=== PATIENT | female | born 1980 | race Caucasian/White ===

== ENCOUNTER → 2020-07-23 15:20 | Outpatient (CLI) | payer MEDICAID, SELFPAY ==
[2020-07-23 16:08] LABS: Basophils # 0.1 K/mm3 (0-0.2); Basophils % 0.9 % (0.1-2.0); Eosinophils # 1.5 K/mm3 (0.0-0.4); Eosinophils % 18.7 % (0.1-12.0); Hemoglobin 14.1 g/dL (12.2-16.2); Mean Corpuscular HGB Conc 33.5 g/dL (31.8-35.4); Mean Corpuscular Hemoglobin 30.8 pg (27.0-31.2); Mean Platelet Volume 8.1 fl (7.4-10.4); Monocytes # 0.5 K/mm3 (0.1-1.0); Monocytes % 6.5 % (1.7-9.3); Neutrophils % 48.9 % (37.0-80.0); Platelet Count 341 K/mm3 (142-424); Red Blood Count 4.57 M/mm3 (4.20-5.40); Red Cell Distribution Width 13.8 % (11.5-17.5); White Blood Count 8.1 K/mm3 (4.8-10.8)
[2020-07-23 16:14] LABS: Alanine Aminotransferase 41 U/L (12-78); Albumin Level 4.2 g/dl (3.5-5.0); Albumin/Globulin Ratio 1.4 (1.1-1.8); Alkaline Phosphatase 79 U/L (38-126); Anion Gap 12.1 mEq/L (5-15); Aspartate Amino Transferase 53 U/L (14-36); Bilirubin,Total 0.6 mg/dl (0.2-1.3); Blood Urea Nitrogen 11 mg/dl (7-17); Calcium 9.4 mg/dl (8.4-10.2); Carbon Dioxide 30 mmol/L (22.0-30.0); Chloride 101 mmol/L (98-107); Chol/HDL Ratio 3.5 (1-3.5); Cholesterol 183 mg/dl (140-200); Estimated Glomerular Filt Rate 80 ml/min (>60); GFR (African American) 97 ML/MIN (>60); Glucose 87 mg/dl (74-100); HDL Cholesterol 53 mg/dl (40-60); Potassium 4.1 mmoL/L (3.5-5.1); Sodium 139 mmol/L (136-145); Total Protein,Serum 7.2 g/dl (6.3-8.2); Triglycerides 113 mg/dl (30-150); VLDL Cholesterol 23 mg/dL (0-40)
[2020-07-23 16:25] LABS: Direct LDL Cholesterol 109.64 mg/dL (100-129)
[2020-07-23 16:29] LABS: Free T4 (Free Thyroxine) 1.28 ng/dl (0.78-2.19)
[2020-07-23 16:31] LABS: 25-OH Vitamin D, Total 31.1 ng/mL (30-100)
[2020-07-23 16:44] LABS: Thyroid Stimulating Hormone 4.55 uIU/mL (0.465-4.68)
== END ==
PROVIDERS: Visit Provider Emergency Medicine
DX: R53.83 Other fatigue (principal); E55.9 Vitamin D deficiency, unspecified; Z79.899 Other long term (current) drug therapy
CPT/HCPCS: 80053; 80061; 82306; 84439; 84443; 85025

== ENCOUNTER → 2020-08-06 13:34 | Outpatient (CLI) | payer MEDICAID, SELFPAY ==
--- NOTE | 2020-08-06 13:34 | MR_ITS ---
PROCEDURE: MR LUMBAR SPINE WO CON CLINICAL INDICATION: back pain lbp. bilateral leg numbness and burning. lt leg pain. no prior. COMPARISON: No exams were available for comparison TECHNIQUE: Standard multiplanar multiecho sequences are performed without contrast. 3-D MIP and myelographic images are also rendered and reviewed FINDINGS: There is normal alignment. The spinal cord ends at the L2 level. L1-L2: There is a small Schmorl node along the superior endplate of L2. L2-L3: Unremarkable. L3-L4: Mild facet and ligamentum hypertrophy. 3 mm cystic area along posterior aspect of the facet on the right may be due to small synovial cyst or subchondral cyst of the facet. L4-5: Minimal bulging disc slightly eccentric toward the left with mild facet and ligamentum hypertrophy causing mild bilateral lateral recess narrowing and mild bilateral foraminal narrowing. This is greater on the left. L5-S1: Mild facet and ligamentum hypertrophy greater on the left causing mild left lateral recess narrowing. No extruded herniated disc or canal stenosis. IMPRESSION: 1. L3-L4: Mild facet and ligamentum hypertrophy. 3 mm cystic area along posterior aspect of the facet on the right may be due to small synovial cyst or subchondral cyst of the facet. This is not causing any neural impingement 2. L4-5: Minimal bulging disc slightly eccentric toward the left with mild facet and ligamentum hypertrophy causing mild bilateral lateral recess narrowing and mild bilateral foraminal narrowing. This is greater on the left. 3. L5-S1: Mild facet and ligamentum hypertrophy greater on the left causing mild left lateral recess narrowing. 4. No extruded herniated disc or canal stenosis. Dictated by: Sanket Combs MD 08/12/2020 10:36 Sanket Combs MD in [place] 08/12/2020 10:36
== END ==
PROVIDERS: PCP Emergency Medicine; Visit Provider Emergency Medicine
DX: M54.5 Low back pain (principal)
CPT/HCPCS: 72148; 76376

== ENCOUNTER → 2020-10-25 14:07 | Outpatient (CLI) | payer MEDICAID, SELFPAY | PROVIDERS: PCP Emergency Medicine; Visit Provider Emergency Medicine | DX: Z20.822 Contact with and (suspected) exposure to COVID-19 (principal) | CPT/HCPCS: U0003 ==